=== PATIENT | female | born 1980 | race Caucasian/White ===

== ENCOUNTER 2019-02-28 20:53 | Emergency (ER) | payer BC, OTHER ==
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
--- NOTE | 2019-02-28 21:31 | RAD ---
EXAM DESCRIPTION: Foot,Right 3 Views CLINICAL HISTORY: right foot injury, edema COMPARISON: None FINDINGS: Three x-ray views of the right foot were submitted. There is soft tissue swelling within the dorsum of the foot. There is no acute fracture or dislocation. Bone mineralization is within normal limits. There is no radiopaque foreign body material. IMPRESSION: No acute fracture or dislocation. Soft tissue swelling. Electronically signed by: Sha Steen MD 02/28/2019 9:29 PM CDT
[2019-02-28 21:35] VITALS: O2SAT 97
[2019-02-28] MEDS: traMADol HCL 50 MG (ER DISP) # 6 TABS PO ONE (21:56)
[2019-02-28 22:15] VITALS: BP 132/96; TEMP 97.9
== END 2019-02-28 22:10 | disposition home or self-care (01) ==
LOC: ER 20:53
DX: S90.31XA Contusion of right foot, initial encounter (principal); W23.0XXA Caught, crushed, jammed, or pinched between moving objects, initial encounter; Y92.814 Boat as the place of occurrence of the external cause

== ENCOUNTER → 2019-10-14 | Outpatient (CLI) | payer BC | LOC: GMAJS 12:12 | PROVIDERS: ATTEND Physician Assistant | DX: R63.5 Abnormal weight gain (principal) ==